=== PATIENT | female | born 1975 | race Caucasian/White ===

== ENCOUNTER 2017-03-26 11:01 | Inpatient (IN) | payer OTHER ==
[~2017-03-26 11:01] MED LIST: OXYTOCIN 30 UNITS/LR 500 ML BAG IV
[2017-03-26] MEDS: LACTATED RINGER'S 1,000 ML IV ×2 (11:58→14:05)
[2017-03-26] MEDS ORDERED: OXYTOCIN 30 UNITS/LR 500 ML IV ×2 (12:00→21:30)
[2017-03-26] MEDS ORDERED: CARBOPROST 250 MCG INJ IM ×2 (12:00→21:30)
[2017-03-26] MEDS ORDERED: CEFAZOLIN 2 GM/50 ML (PMX) 50 ML IV (12:00)
[2017-03-26 12:08] LABS: ADD MAN DIFF? NO
[2017-03-26 12:19] LABS: BASOPHILS % 0.2 % (0.0-2.0); EOSINOPHILS # 0.1 10^3/ul (0.0-0.5); EOSINOPHILS % 0.5 % (0.0-7.0); HEMATOCRIT 39.9 % (37.0-47.0); HEMOGLOBIN 13.7 g/dl (12.0-16.0); LYMPHOCYTES # 1.5 10^3/ul (0.8-2.9); LYMPHOCYTES % 14.6 % (15.0-51.0); MEAN CORPUSCULAR HEMOGLOBIN 32.2 pg (29.0-33.0); MEAN CORPUSCULAR HGB CONC 34.3 g/dl (32.0-37.0); MEAN CORPUSCULAR VOLUME 93.9 fl (82.0-101.0); MEAN PLATELET VOLUME 11.3 fl (7.4-10.4); MONOCYTE # 0.5 10^3/ul (0.3-0.9); MONOCYTES % 4.5 % (0.0-11.0); NEUTROPHIL # 8.2 10^3/ul (1.6-7.5); NEUTROPHILS % 79.6 % (39.0-77.0); PLATELET COUNT 155 10^3/UL (140-415); RED BLOOD COUNT 4.25 10^6/ul (4.20-5.40); RED CELL DISTRIBUTION WIDTH 15.9 % (11.5-14.5)
[2017-03-26 12:19] LABS: WHITE BLOOD COUNT 10.2 10^3/ul (4.8-10.8)
[2017-03-26 12:37] LABS: INR 0.85; PROTIME 11.7 Sec (11.9-14.9); PT RATIO 0.9
[2017-03-26 12:38] LABS: GLUCOSE 68 mg/dl (70-220)
[2017-03-26 12:38] LABS: PARTIAL THROMBOPLASTIN TIME 28.6 Sec (25.0-35.0)
[2017-03-26 13:08] LABS: HEPATITIS B SURFACE ANTIGEN NEGATIVE (NEGATIVE)
[2017-03-26] MEDS: METOCLOPRAMIDE 10 MG INJ IV (15:30)
[2017-03-26] MEDS: FAMOTIDINE 20 MG INJ IV (15:30)
[2017-03-26] MEDS: ONDANSETRON 4 MG INJ IV (15:30)
[2017-03-26] MEDS ORDERED: morphine SULFATE/PF (10 MG/10 ML) INJ (16:16)
[2017-03-26] MEDS ORDERED: NALOXONE (0.4 MG/ML) INJ IV (18:00)
[2017-03-26] MEDS ORDERED: ZOLPIDEM 5 MG TAB PO (18:00)
[2017-03-26] MEDS ORDERED: FENTAnyl 50 MCG/ML VIAL IV (18:00)
[2017-03-26] MEDS ORDERED: HYDROmorphONE 0.5 MG/0.5 ML SYG IV (18:00)
[2017-03-26] MEDS ORDERED: ONDANSETRON 4 MG INJ IV ×2 (18:00)
[2017-03-26] MEDS ORDERED: METOCLOPRAMIDE 10 MG INJ IV (18:00)
[2017-03-26] MEDS ORDERED: HYDROmorphONE (0.2 MG/ML) 10ML SYG IV ×2 (18:00)
[2017-03-26] MEDS ORDERED: MEPERIDINE 25 MG INJ IV (18:00)
[2017-03-26] MEDS ORDERED: DIPHENHYDRAMINE 50 MG INJ IV ×2 (18:00)
[2017-03-26] MEDS: MISOPROSTOL 200 MCG TAB PR ×2 (18:09→18:23)
[2017-03-26] MEDS: METHYLERGONOVINE 0.2 MG INJ IM (18:10)
[2017-03-26] MEDS: OXYTOCIN 30 UNITS/LR 500 ML IV ×2 (18:44→23:21)
[2017-03-26] MEDS: FENTAnyl 50 MCG/ML VIAL IV ×2 (19:00→20:45)
[2017-03-26] MEDS ORDERED: LANOLIN 7 GM TUBE TOP (21:30)
[2017-03-26] MEDS ORDERED: MISOPROSTOL 200 MCG TAB PR (21:30)
[2017-03-26] MEDS ORDERED: OXYCODONE/ACETAMINOPHEN (5/325) TAB PO (21:30)
[2017-03-26] MEDS ORDERED: HYDROCODONE/APAP (5/325) TAB PO (21:30)
[2017-03-26] MEDS ORDERED: METHYLERGONOVINE 0.2 MG INJ IM (21:30)
[2017-03-26 22:53] LABS: RAPID PLASMA REAGIN NONREACTIVE (NR)
[2017-03-27] MEDS: CEFAZOLIN 1 GM/50 ML (PMX) 50 ML IVPB (01:03)
[2017-03-27] MEDS: OXYTOCIN 30 UNITS/LR 500 ML IV ×6 (01:12→21:12)
[2017-03-27] MEDS: HYDROmorphONE 0.5 MG/0.5 ML SYG IV ×3 (04:15→14:51)
[2017-03-27] MEDS: LACTATED RINGER'S 1,000 ML IV ×3 (06:22→19:52)
[2017-03-27 08:24] LABS: ADD MAN DIFF? NO
[2017-03-27 08:27] LABS: WHITE BLOOD COUNT 11.6 10^3/ul (4.8-10.8)
[2017-03-27 08:27] LABS: BASOPHILS % 0.3 % (0.0-2.0); EOSINOPHILS % 0.2 % (0.0-7.0); HEMOGLOBIN 11.6 g/dl (12.0-16.0); LYMPHOCYTES # 0.9 10^3/ul (0.8-2.9); LYMPHOCYTES % 7.8 % (15.0-51.0); MEAN CORPUSCULAR HEMOGLOBIN 32.1 pg (29.0-33.0); MEAN CORPUSCULAR HGB CONC 34.1 g/dl (32.0-37.0); MEAN CORPUSCULAR VOLUME 94.2 fl (82.0-101.0); MEAN PLATELET VOLUME 10.7 fl (7.4-10.4); MONOCYTE # 0.5 10^3/ul (0.3-0.9); MONOCYTES % 4.2 % (0.0-11.0); NEUTROPHIL # 10.1 10^3/ul (1.6-7.5); NEUTROPHILS % 86.9 % (39.0-77.0); PLATELET COUNT 138 10^3/UL (140-415); RED BLOOD COUNT 3.61 10^6/ul (4.20-5.40)
[2017-03-27] MEDS: SENNA/DOCUSATE NA (8.6MG/50MG) TAB PO ×2 (09:48→20:10)
[2017-03-27] MEDS: IBUPROFEN 600 MG TAB PO (18:51)
[2017-03-27] MEDS: OXYCODONE/ACETAMINOPHEN (5/325) TAB PO (20:10)
[2017-03-28] MEDS: OXYTOCIN 30 UNITS/LR 500 ML IV ×6 (01:12→21:12)
[2017-03-28] MEDS: LACTATED RINGER'S 1,000 ML IV ×3 (03:52→19:57)
[2017-03-28] MEDS: OXYCODONE/ACETAMINOPHEN (5/325) TAB PO ×2 (05:21→17:39)
[2017-03-28] MEDS: IBUPROFEN 600 MG TAB PO ×4 (06:24→19:56)
[2017-03-28] MEDS: SENNA/DOCUSATE NA (8.6MG/50MG) TAB PO ×2 (09:44→21:06)
[2017-03-28] MEDS: NA PHOSPHATE/BIPHOS 133 ML ENEMA PR (10:30)
[2017-03-28] MEDS ORDERED: VITAMIN A & D 5 GM OINT PACKET TOP (14:32)
[2017-03-29] MEDS: OXYCODONE/ACETAMINOPHEN (5/325) TAB PO (00:24)
[2017-03-29] MEDS: OXYTOCIN 30 UNITS/LR 500 ML IV ×3 (01:12→11:17)
[2017-03-29] MEDS: LACTATED RINGER'S 1,000 ML IV (03:52)
[2017-03-29] MEDS: IBUPROFEN 600 MG TAB PO ×3 (05:44→11:57)
[2017-03-29] MEDS: NA PHOSPHATE/BIPHOS 133 ML ENEMA PR (05:44)
[2017-03-29] MEDS: DIPHTH/TET/ACEL PERTUSS (ADULT) 0.5 ML VIAL IM* (09:00)
[2017-03-29] MEDS: HYDROCODONE/APAP (5/325) TAB PO (10:07)
[2017-03-29] MEDS: SENNA/DOCUSATE NA (8.6MG/50MG) TAB PO (10:07)
== END 2017-03-29 14:52 | disposition home or self-care (01) | DRG 766 ==
LOC: L-D 11:01 → PP1 21:39
PROVIDERS: Obstetrics & Gynecology
PROC: 10D00Z1 Extraction of Products of Conception, Low, Open Approach (ICD-10-PCS; principal; 2017-03-26 14:00)
PROC: 0UB70ZZ Excision of Bilateral Fallopian Tubes, Open Approach (ICD-10-PCS; 2017-03-26 14:00)
DX: O24.425 Gestational diabetes mellitus in childbirth, controlled by oral hypoglycemic drugs (principal); O34.211 Maternal care for low transverse scar from previous cesarean delivery; Z37.0 Single live birth; Z3A.39 39 weeks gestation of pregnancy
CPT/HCPCS: 82947; 85025; 85610; 85730; 86592; 86850; 86900; 86901; 87340; 88302; 90715; 94760; 99464